=== PATIENT | female | born 1975 ===

== ENCOUNTER 2017-10-13 03:00 | Inpatient (IN) | payer OTHER ==
[2017-10-13 13:15] LABS: Hematocrit 35 % (35-47); Hemoglobin 11.6 g/dl (12.0-16.0); Mean Corpuscular HGB Conc 33 g/dl (31-36); Mean Corpuscular Hemoglobin 29 pg (27-31); Mean Corpuscular Volume 88 fL (80-97); Mean Platelet Volume 10 um3 (7.4-10.4); Red Blood Count 4.03 10^6/ul (4.0-5.4); Red Cell Distribution Width 15 % (10.5-15); White Blood Count 14.8 10^3/ul (3.5-10.8)
[2017-10-13] MEDS ORDERED: OBEPIDURAL* 250 ML ONE (13:16)
[2017-10-13] MEDS ORDERED: Sodium Citrate/Citric Acid* 15 ML UDC PO PRN (13:38)
[2017-10-13] MEDS ORDERED: Famotidine TAB* 20 MG PO PRN (13:38)
[2017-10-13] MEDS ORDERED: Phenylephrine IV* 40 MCG/ML 10 ML SYRINGE IV PUSH PRN ×2 (13:38)
[2017-10-13] MEDS ORDERED: OBEPIDURAL* 250 ML EPIDURAL SCH (14:00)
[2017-10-13] MEDS ORDERED: Oxytocin in LR* 20 UNITS/1,000 ML BAG IVPB ONE (14:48)
[2017-10-13] MEDS ORDERED: Dibucaine 1% 28.35 GM TUBE PR PRN (15:13)
[2017-10-13] MEDS ORDERED: Witch Hazel PAD* JAR TOPICAL PRN (15:13)
[2017-10-13] MEDS ORDERED: Acetaminophen TAB* 325 MG PO PRN (15:13)
[2017-10-13] MEDS ORDERED: Glycerin ADULT SUPP PR PRN (15:13)
[2017-10-13] MEDS ORDERED: Oxytocin in LR* 20 UNITS/1,000 ML BAG IVPB SCH (16:00)
[2017-10-14] MEDS: Docusate CAP* 100 MG PO SCH ×3 (08:49→20:29)
[2017-10-14] MEDS: Ibuprofen TAB* 600 MG PO PRN ×2 (08:49→20:29)
[2017-10-14] MEDS ORDERED: Ferrous Gluconate TAB* 324 MG TAB PO SCH (09:00)
[2017-10-14 10:06] LABS: Hematocrit 32 % (35-47); Hemoglobin 10.5 g/dl (12.0-16.0); Mean Corpuscular HGB Conc 33 g/dl (31-36); Mean Corpuscular Hemoglobin 29 pg (27-31); Mean Corpuscular Volume 88 fL (80-97); Mean Platelet Volume 9 um3 (7.4-10.4); Red Blood Count 3.61 10^6/ul (4.0-5.4); Red Cell Distribution Width 14 % (10.5-15); White Blood Count 15.1 10^3/ul (3.5-10.8)
[2017-10-14 20:37] VITALS: BP 112/55
[2017-10-15] MEDS: Ibuprofen TAB* 600 MG PO PRN (04:08)
[2017-10-15] MEDS: Docusate CAP* 100 MG PO SCH (08:44)
== END 2017-10-15 11:42 | disposition home or self-care (01) | DRG 560 ==
LOC: MCHOBOUT 03:00 → MCHOB 03:57
PROVIDERS: ADMIT Midwife; ATTEND Midwife
PROC: 10E0XZZ Delivery of Products of Conception, External Approach (ICD-10-PCS; principal; 2017-10-13)
PROC: 10907ZC Drainage of Amniotic Fluid, Therapeutic from Products of Conception, Via Natural or Artificial Opening (ICD-10-PCS; 2017-10-13)
PROC: 0HQ9XZZ Repair Perineum Skin, External Approach (ICD-10-PCS; 2017-10-13)
DX: O69.81X0 Labor and delivery complicated by cord around neck, without compression, not applicable or unspecified (principal); J45.909 Unspecified asthma, uncomplicated; O69.2XX0 Labor and delivery complicated by other cord entanglement, with compression, not applicable or unspecified; O70.0 First degree perineal laceration during delivery; O99.52 Diseases of the respiratory system complicating childbirth; Z3A.40 40 weeks gestation of pregnancy; Z37.0 Single live birth
CPT/HCPCS: 36415; 85025; 85027; 86850; 86900; 86901; A9270-GY